=== PATIENT | female | born 1940 | race Caucasian/White ===

== ENCOUNTER 2016-08-31 09:13 | Observation (INO) ==
--- NOTE | 2016-08-31 09:33 | Emergency Department Note ---
Disposition Clinical Impression: Fracture of greater trochanter of left femur, Fall, Narcotic induced mental alteration Disposition: Admitted As Inpatient Condition: Fair Referrals: NO,PCP [Non-Partnered Physician] - Forms: ED Satisfaction Letter Time of Disposition: 12:25 Lower Extremity Injury HPI - General Chief Complaint: ED Extremity Injury, Lower Stated Complaint: fall/ left hip pain Time Seen by Provider: 08/31/16 09:20 Source: patient, EMS Mode of arrival: EMS Limitations: altered mental status (appears lethargic ) Nursing Notes Reviewed: Yes Vital Signs Reviewed: Yes - History of Present Illness HPI Narrative: Patient reportedly was pushing a chair when the chair went away from her she slipped fell and hit her hip family unable to get her up she has had a history of hip injury in the past family that it took EMS decide upon their arrival noted that they she appears to be overmedicated they are concerned that she may too much pain medication with Xanax they state there is a number of pills missing Brenda's how hard time awakening or they are concerned as this may be the falls result of being overmedicated as a result she is here for evaluation of the hip injury as well as possible overmedication Pt Subjective Complaint: hip injury Injury location: Left hip, Left pelvis Onset (ago): [employer] Mechanism of Injury: fall Context: fall, direct blow Place: home Pain Severity: moderate Pain Scale: 5 Improves with: nothing Worsens with: nothing Associated symptoms: Reports: unable to bear weight, snap/pop sensation - Related Data Home Medications Medication Instructions Recorded Confirmed Alprazolam [Xanax 0.5 MG Tablet] 0.5 mg PO BID 08/31/16 08/31/16 Amlodipine [Norvasc] 10 mg PO DAILY 08/31/16 08/31/16 Cetirizine HCl [Zyrtec] 10 mg PO DAILY 08/31/16 08/31/16 HYDROcodone/Acet 7.5/325 mg [[place] 1 tab PO QID 08/31/16 08/31/16 7.5-325 mg] Lisinopril-HCTZ 10-12.5 [Prinzide 1 each PO DAILY 08/31/16 08/31/16 10-12.5] Omeprazole [PriLOSEC] 20 mg PO DAILY 08/31/16 08/31/16 Allergies Allergy/AdvReac Type Severity Reaction Status Date / Time Sulfa (Sulfonamide Allergy Rash Verified 08/31/16 09:16 Antibiotics) All systems ED: reviewed and negative except as stated. Constitutional: Reports: weakness. Denies: fever, chills Eyes: Denies: eye pain ENT ED: Denies: ear pain, throat pain, dental pain Cardiovascular: Denies: chest pain, palpitations, dyspnea on exertion Respiratory: Denies: cough, dyspnea, wheezes Gastrointestinal: Denies: abdominal pain, nausea, vomiting Genitourinary: Denies: urgency, dyspareunia, genital lesions Musculoskeletal: Reports: joint swelling (and pain Left hip area) Integumentary: Denies: rash, abrasion Neurological: Reports: weakness. Denies: headache Psychiatric: Denies: anxiety Endocrine: Reports: fatigue Hematological/Lymphatic: Denies: easy bleeding Allergic/Immunologic: Denies: facial swelling Past Medical History - Past Medical History Attestation: Yes The following information was validated with the patient. Source: patient, old records reviewed, nursing notes reviewed Physical Exam - General Limitations: altered mental status General appearance: appears intoxicated, lethargic, cachectic - Head Head exam: atraumatic, normocephalic, normal inspection - Eye Eye exam: Present: normal appearance, PERRL, EOMI, other (pupils pinpoint) - ENT ENT exam: normal exam, normal oropharynx, mucous membranes moist, normal external ear exam - Neck Neck exam: Present: normal inspection, full ROM, trachea midline - Chest Chest inspection: Present: normal inspection, symmetric chest wall rise - Respiratory Respiratory exam: Present: normal lung sounds bilaterally - Cardiovascular Cardiovascular exam: Present: regular rate, normal rhythm, normal heart sounds - Abdominal Exam Abdominal exam: Present: soft, Non-Tender, normal bowel sounds. Absent: mass, pulsatile mass, hernia - Expanded Upper Extremity Exam Shoulder exam: Present: normal inspection, full ROM Arm exam: Present: normal inspection, full ROM Elbow exam: Present: normal inspection, full ROM Forearm/Wrist exam: Present: normal inspection, full ROM Hand exam: Present: normal inspection, full ROM Vascular exam: Normal: capillary refill, radial pulse - Expanded Lower Extremity Exam Hip/Pelvis exam: Present: normal inspection, full ROM, pelvis stable, other ( Patient has full range of motion in the left hip but has pain with flexion and extension ABD and ADD duction patient though has full range of motion in the right hip pelvic girdle was stable but it is tender to palpate on the left) Upper leg exam: Present: normal inspection, full ROM Knee exam: Present: normal inspection, full ROM Lower leg exam: Present: normal inspection, full ROM Ankle exam: Present: normal inspection, full ROM Foot/toe exam: Present: normal inspection, full ROM Neurovascular/Tendon exam: Present: normal capillary refill, normal fine/light touch. Absent: motor deficit, sensory deficit, tendon deficit Gait: not tested/not observed - Back Exam Back exam: Present: normal inspection, full ROM. Absent: tenderness, muscle spasm - Neurological Exam Neurological exam: Present: alert, oriented X3, CN II-XII intact - Psychiatric Psychiatric exam: Present: normal affect, normal mood - Skin Skin exam: Present: warm, dry, intact, normal color Course Course Narrative: Patient seen and examined patient appeared to be lethargic and difficult to arouse but was maintaining her airway saturation and blood pressure as a result patient was not given Narcan due to the fact that it may even G Xanax and to prevent seizure activity as result patient is resting comfortably awaiting laboratory results - Reevaluation(s) Reevaluation #1: Family advises us after discussion with Dr. Velazquez that she has been taking too many of her [place] she is taking 2 tabs every 4-6 hours instead of 1 tab every 6 hours as prescribed she has already gone through almost 30+ tabs in 24-48 hours according to the son Heri in addition he is unsure of how many Xanax she has taken during this period time which is most likely contributing factor to her fall which broke her hip today Dr. Livingston felt the patient did not need have surgical intervention as a result we will keep her here at our facility and then give her orthopedic referral at discharge to Dr. Danielle Vital Signs Temperature 97.7 F 08/31/16 09:17 Pulse Rate 91 08/31/16 09:17 Respiratory Rate 18 08/31/16 09:17 Blood Pressure 127/46 08/31/16 09:17 O2 Sat by Pulse Oximetry 100 08/31/16 09:17 Temperature 97.7 F 08/31/16 09:17 Pulse Rate 81 08/31/16 11:30 Respiratory Rate 18 08/31/16 11:30 Blood Pressure 110/60 08/31/16 11:30 O2 Sat by Pulse Oximetry 98 08/31/16 11:30 Oxygen Delivery Oxygen Delivery Room Air Extremity Injury, Lower - Differential Diagnosis Likely: fracture, dislocation - Medical Records Medical records reviewed: Yes I reviewed the patient's medical records. - Lab Data Lab results reviewed: Yes I reviewed the patient's lab results. Lab Results 08/31/16 08/31/16 Range/Units 09:40 09:40 Urine Color Yellow (Yellow) Urine Clarity Clear (Clear) Urine pH 5.5 (5.0-8.0) pH Units Ur Specific [place] 1.010 (1.010-1.025) Urine Protein Negative (Neg-Trace) mg/dL Urine Glucose (UA) Normal (Normal) mg/dL Urine Ketones Negative (Negative) mg/dL Urine Blood Negative (Negative) Urine Nitrite Negative (Negative) Urine Bilirubin Negative (Negative) Urine Urobilinogen Normal (Normal) mg/dL Ur Leukocyte Esterase Negative (Negative) Ur Culture Indicated? NO (NO) Urine Opiates Screen Positive H (Nnklea=139) ng/mL Ur Oxycodone Screen Negative (Cutoff= 100) ng/mL Ur Barbiturates Screen Negative (Balyrw=416) ng/mL Ur Phencyclidine Scrn Negative (Cutoff=25) ng/mL Ur Amphetamines Screen Negative (Nsiitd=2899) ng/mL U Benzodiazepines Scrn Positive H (Kazjqv=772) ng/mL Urine Cocaine Screen Negative (Cutoff= 300) ng/mL U Marijuana (THC) Screen Negative (Cutoff = 50) ng/mL - Radiology Data Radiology results reviewed: Yes I reviewed the patient's radiology results. Critical Care Time Critical Care Time: No
[2016-08-31 09:53] LABS: Bilirubin,Urine Negative (Negative); Blood,Urine Negative (Negative); Clarity,Urine Clear (Clear); Color,Urine Yellow (Yellow); Glucose,Urine (UA) Normal (Normal); Ketones,Urine Negative (Negative); Leukocyte Esterase,Urine Negative (Negative); Nitrite,Urine Negative (Negative); PH,Urine 5.5 pH Units (5.0-8.0); Protein,Urine Negative (Neg-Trace); Urobilinogen,Urine Normal (Normal)
[2016-08-31 09:59] LABS: Amphetamine Screen,Urine Negative ng/mL (Cutoff=1000); Barbiturate Screen,Urine Negative ng/mL (Cutoff=200); Benzodiazepines Screen,Urine Positive ng/mL (Cutoff=200); Cannabinoid Screen,Urine Negative ng/mL (Cutoff = 50); Cocaine Screen,Urine Negative ng/mL (Cutoff= 300); Opiate Screen,Urine Positive ng/mL (Cutoff=300); Phencyclidine Screen,Urine Negative ng/mL (Cutoff=25)
[2016-08-31] MEDS ORDERED: *HR* Morphine 2 MG/ML SYRINGE IVP PRN (12:41)
[2016-08-31] MEDS ORDERED: Naloxone 0.4 MG/ML INJ IVP PRN (12:41)
[2016-08-31] MEDS ORDERED: Ondansetron 4 MG/2 ML VIAL IVP PRN (12:41)
[2016-08-31 12:52] LABS: Basophils % 0.2 %; Eosinophils # 0.3 K/mcL (0.0-0.6); Eosinophils % 2.4 %; Hematocrit 30.1 % (35.3-44.9); Immature Granulocytes % 0.3 % (0-4); Lymphocytes # 1.7 K/mcL (0.6-4.6); Lymphocytes % 15.7 %; Mean Corpuscular HGB Conc 33.2 g/dL (31.6-35.5); Mean Corpuscular Hemoglobin 26.7 pg (28.0-33.3); Mean Corpuscular Volume 80.5 fL (83.0-100.0); Mean Platelet Volume 9.7 fL (9.4-12.4); Monocytes # 0.6 K/mcL (0.0-1.3); Monocytes % 5.7 %; Neutrophils # 8.2 K/mcL (1.6-8.9); Platelet Count 298 K/mcL (140-400); Red Blood Count 3.74 M/mcL (3.82-4.97); Red Cell Distribution Width 15.9 % (11.5-14.5); Segmented Neutrophils % 75.7 %
[2016-08-31 12:58] LABS: INR 1.1; Prothrombin Time 11.4 Seconds (9.4-12.1)
[2016-08-31 13:01] LABS: Activated Partial Thrombo Time 38.5 Seconds (26.0-36.0)
[2016-08-31 13:07] LABS: BUN/Creatinine Ratio 20 (6-26); Blood Urea Nitrogen 21 mg/dL (7-20); Carbon Dioxide 23 mEq/L (19-29); Chloride 97 mEq/L (98-109); Glucose 80 mg/dL (70-99); Osmolality,Calculated 272 (280-300); Potassium 4.8 mEq/L (3.5-4.5); Sodium 130 mEq/L (136-145); eGFR For African Americans > 60 (> 60); eGFR For Non-African Americans 52 (> 60)
--- NOTE | 2016-08-31 15:49 | Internal Med History&Physical ---
Date of Encounter: 08/31/16 Time of Encounter: 15:20 Assessment and Plan (1) Fracture of greater trochanter of left femur Current visit: Yes Status: Acute An MRI will be done to assess for additional fracture. If no additional fractures are seen she will be given analgesics and PT and OT evaluation will be done. Qualifiers: Encounter type: initial encounter Fracture type: closed Qualified Code(s) : S72.112A - Displaced fracture of greater trochanter of left femur, initial encounter for closed fracture (2) Altered mental status Current visit: Yes Status: Acute Suspect due to use of benzodiazepines and narcotics. These will be titrated downward as tolerated. Qualifiers: Altered mental status type: unspecified Qualified Code(s): R41.82 - Altered mental status, unspecified (3) Microcytic anemia Current visit: Yes Status: Acute Anemia testing will be done in a.m. Suspect due to blood loss from chronic ibuprofen use. (4) Azotemia Current visit: Yes Status: Acute Will discontinue ibuprofen and give IV fluids. Monitor renal indices. Internal Medicine - H&P: HPI Chief complaint: Fall and left femur fracture Admitted From: Home Plans for Post Hospital Care: Home History of present illness: Ms. Garcia is a 76 year old female who was brought to the emergency room after she had a fall at home while pushing a chair in her kitchen. She states she simply lost her footing and fell to the floor. She had severe pain and states she could not stand. She remained on the floor for approximately 30 minutes until her son and grandson happened to come to her house. When they found her on the floor the squad was called and she was brought to the emergency room. CT scan of the pelvis showed nondisplaced fracture the superior aspect of the left femoral greater trochanter without definite involvement of the femoral neck or intertrochanteric extension. There was severe spondylosis at L5-S1 and at least moderate bilateral L5 neural foraminal narrowing. A MRI was mentioned to assess for occult involvement of the femoral neck or intertrochanteric region. She states her last fall was approximately 6 months ago when she slipped in the shower. She typically uses a cane or walker for ambulation and feels stable. Her musk skeletal history is significant for previous low back surgeries as well as 3 left shoulder surgeries. She does not have known gout. Past Med Surg Social Fam HX - Past Medical History Medical history: GERD, hypertension Psychiatric history: anxiety, depression - Social History Smoking Status: Current every day smoker Smokeless Tobacco Status: No Alcohol use: none Drug use: none Internal Medicine - H&P: Meds Alprazolam [Xanax 0.5 MG Tablet] 0.5 mg PO BID 08/31/16 [History] Amlodipine [Norvasc] 10 mg PO DAILY 08/31/16 [History] Cetirizine HCl [Zyrtec] 10 mg PO DAILY 08/31/16 [History] HYDROcodone/Acet 7.5/325 mg [[place] 7.5-325 mg] 1 tab PO QID 08/31/16 [History] Lisinopril-HCTZ 10-12.5 [Prinzide 10-12.5] 1 each PO DAILY 08/31/16 [History] Omeprazole [PriLOSEC] 20 mg PO DAILY 08/31/16 [History] Allergies Sulfa (Sulfonamide Antibiotics) Allergy (Verified 08/31/16 09:16) Rash All Systems PM: A 10-system review of systems was performed and is negative for pertinent findings except as documented above in the HPI. Review of systems: Gen.: She states her weight has been stable past few months Cardiovascular: She has history of hypertension but denies NV heart failure angina DVT or pulmonary embolus Respiratory: She smokes since age 57 never exceeding one fourth pack per day. She denies chronic lung disease and does not wear home oxygen. GI: She denies disorders of her liver gallbladder or exocrine pancreas : She denies hematuria dysuria or kidney stones Neurologic: She denies large distribution strokes or seizures. Endocrine: She denies diabetes thyroid disease or hyperlipidemia Hematology/oncology: She has history of anemia but has not had workup done. She denies internal malignancies or other blood disorders Psychiatric: She has anxiety and depression [place] skeletal: As per history of present illness - Constitutional Vitals: Temp Pulse Resp BP Pulse Ox 98.5 F 90 12 105/76 98 08/31/16 13:18 08/31/16 13:18 08/31/16 13:18 08/31/16 13:18 08/31/16 13:20 Exam: Gen.: She is a well-developed well-nourished female who appears in mild pain at the present time. She is lethargic but does awaken and answer questions appropriately. HEENT: Head is atraumatic and normocephalic. Eyes: EOMI. There is no scleral icterus. Mouth: Mucosa is moist. Neck: Supple and nontender. There is no thyromegaly or adenopathy noted. Heart: Regular without murmurs gallops or ectopics. Lungs: She has diminished breath sounds diffusely. No wheezes or crackles are heard. Abdomen: Soft and nontender. No masses or guarding are noted. Extremities: She has DJD changes of her hands. There is no cyanosis edema or clubbing noted. Dorsalis pedis and posttibial pulses are 1-2 over 2 bilaterally. She has pain on movement of her left leg or raising up from lying position. Neurologic: Mental status: She is talkative and a good historian. Cranial nerves: Smile is symmetric. Forehead wrinkles bilaterally. Tongue protrudes midline. EOMI. Motor: There is no pronator drift. Cerebellar: Finger to nose is intact bilaterally. Skin: Warm and dry Internal Med - H&P Results - Labs CBC & Chem 7: 08/31/16 12:33 08/31/16 12:33
[2016-08-31] MEDS: *HR* HYDROcodone/Acet 5/325 mg TABLET PO PRN (18:22)
[2016-09-01] MEDS: *HR* HYDROcodone/Acet 5/325 mg TABLET PO PRN ×3 (03:31→20:31)
[2016-09-01 05:26] LABS: Basophils % 0.2 %; Eosinophils # 0.4 K/mcL (0.0-0.6); Eosinophils % 4.4 %; Hemoglobin 8.8 g/dL (11.5-15.4); Immature Granulocytes % 0.3 % (0-4); Lymphocytes # 1.5 K/mcL (0.6-4.6); Lymphocytes % 16.5 %; Mean Corpuscular HGB Conc 33.8 g/dL (31.6-35.5); Mean Corpuscular Hemoglobin 27.3 pg (28.0-33.3); Mean Corpuscular Volume 80.7 fL (83.0-100.0); Mean Platelet Volume 9.9 fL (9.4-12.4); Monocytes # 0.5 K/mcL (0.0-1.3); Monocytes % 5.8 %; Neutrophils # 6.7 K/mcL (1.6-8.9); Platelet Count 262 K/mcL (140-400); Red Blood Count 3.22 M/mcL (3.82-4.97); Red Cell Distribution Width 16.1 % (11.5-14.5); Segmented Neutrophils % 72.8 %
[2016-09-01 05:58] LABS: Alanine Aminotransferase 128 Units/L (0-55); Albumin 3.2 g/dL (3.5-5.0); Albumin/Globulin Ratio 1.1 (1.1-2.2); Alkaline Phosphatase 189 Units/L (38-126); Aspartate Amino Transferase 53 Units/L (5-34); BUN/Creatinine Ratio 17 (6-26); Bilirubin,Total 0.3 mg/dL (0.2-1.2); Blood Urea Nitrogen 12 mg/dL (7-20); Calcium 8.5 mg/dL (8.6-10.8); Carbon Dioxide 21 mEq/L (19-29); Chloride 99 mEq/L (98-109); Globulin 2.9 g/dL (2.4-3.5); Glucose 87 mg/dL (70-99); Osmolality,Calculated 271 (280-300); Potassium 4.2 mEq/L (3.5-4.5); Sodium 131 mEq/L (136-145); Total Protein 6.1 g/dL (6.0-8.3); eGFR For African Americans > 60 (> 60); eGFR For Non-African Americans > 60 (> 60)
[2016-09-01 06:18] LABS: Thyroid Stimulating Hormone 0.462 mcIU/mL (0.350-4.840)
--- NOTE | 2016-09-01 08:59 | Internal Med Progress Note ---
Date of Encounter: 09/01/16 Time of Encounter: 08:50 - Assessment and plan (1) Fracture of greater trochanter of left femur Current Visit: Yes Status: Acute Assessment and plan: September 01. Continue therapy intervention and pain control. Qualifiers: Encounter type: initial encounter Fracture type: closed Qualified Code(s) : S72.112A - Displaced fracture of greater trochanter of left femur, initial encounter for closed fracture (2) Altered mental status Current Visit: Yes Status: Acute Assessment and plan: September 01. Improved on lower dose benzodiazepines and narcotic. Qualifiers: Altered mental status type: unspecified Qualified Code(s): R41.82 - Altered mental status, unspecified (3) Microcytic anemia Current Visit: Yes Status: Acute Assessment and plan: September 01. Anemia testing is pending (4) Azotemia Current Visit: Yes Status: Acute Assessment and plan: September 01. Resolved. Remain off ibuprofen and continue IV fluids for now. - Subjective Interval history: September 01. She has no new complaints. She states she has pain in her left hip and shoulder area. - Constitutional Vitals: Temp Pulse Resp BP Pulse Ox 98.6 F 81 16 115/54 96 09/01/16 07:16 09/01/16 07:16 09/01/16 07:16 09/01/16 07:16 09/01/16 07:16 Exam: She is lying in bed and appears in no significant distress. Her affect is overall cheerful. I reviewed her medications and lab results. I received a verbal report from nursing last night that her MRI scan was reviewed by an orthopedist at [facility] who did not feel surgical intervention was necessary. Internal Medicine: Result - Labs CBC & Chem 7: 09/01/16 05:17 09/01/16 05:17 Labs: Short CBC 09/01/16 Range/Units 05:17 WBC 9.2 (4.3-11.1) K/mcL Hgb 8.8 L (11.5-15.4) g/dL Hct 26.0 L (35.3-44.9) % Plt Count 262 (140-400) K/mcL Neutrophils # 6.7 (1.6-8.9) K/mcL BMP 09/01/16 05:17 Sodium 131 L Potassium 4.2 Chloride 99 Carbon Dioxide 21 BUN 12 Creatinine 0.71 Glucose 87 Calcium 8.5 L Liver Function 09/01/16 Range/Units 05:17 Total Bilirubin 0.3 (0.2-1.2) mg/dL AST 53 H (5-34) Units/L ALT 128 H (0-55) Units/L Alkaline Phosphatase 189 H (38-126) Units/L Albumin 3.2 L (3.5-5.0) g/dL - ABG Interpretation ABG results: PT/INR, D-dimer PT 11.4 Seconds (9.4-12.1) 08/31/16 12:33 Consult Discharge Plan - Plan Referrals: Ashok Simmons DO [Primary Care Provider] - 1 week
[2016-09-01] MEDS ORDERED: Pantoprazole 40 MG VIAL IVP SCH (09:00)
[2016-09-01] MEDS ORDERED: Loratadine 10 MG TABLET PO SCH (09:00)
[2016-09-01 14:23] LABS: Folate 11.4 ng/mL (7.0-31.4)
[2016-09-01 14:39] LABS: % Iron Saturation 14 % (15-50); Iron 40 mcg/dL (50-170); Transferrin 208 mg/dL (180-382)
[2016-09-01 15:00] LABS: Ferritin 43 ng/ml (5-204)
[2016-09-02] MEDS: *HR* HYDROcodone/Acet 5/325 mg TABLET PO PRN ×4 (05:32→20:45)
[2016-09-02 05:49] LABS: Basophils % 0.3 %; Eosinophils # 0.3 K/mcL (0.0-0.6); Eosinophils % 4.2 %; Hemoglobin 9.2 g/dL (11.5-15.4); Immature Granulocytes % 0.3 % (0-4); Lymphocytes % 29.1 %; Mean Corpuscular HGB Conc 34.1 g/dL (31.6-35.5); Mean Corpuscular Volume 79.2 fL (83.0-100.0); Mean Platelet Volume 9.9 fL (9.4-12.4); Monocytes # 0.5 K/mcL (0.0-1.3); Monocytes % 7.8 %; Platelet Count 316 K/mcL (140-400); Red Blood Count 3.41 M/mcL (3.82-4.97); Red Cell Distribution Width 16.2 % (11.5-14.5); Segmented Neutrophils % 58.3 %
[2016-09-02 06:03] LABS: BUN/Creatinine Ratio 11 (6-26); Blood Urea Nitrogen 7 mg/dL (7-20); Calcium 8.9 mg/dL (8.6-10.8); Carbon Dioxide 24 mEq/L (19-29); Chloride 99 mEq/L (98-109); Glucose 100 mg/dL (70-99); Osmolality,Calculated 274 (280-300); Potassium 4.1 mEq/L (3.5-4.5); Sodium 133 mEq/L (136-145); eGFR For African Americans > 60 (> 60); eGFR For Non-African Americans > 60 (> 60)
--- NOTE | 2016-09-02 09:29 | Internal Med Progress Note ---
Date of Encounter: 09/02/16 Time of Encounter: 09:20 - Assessment and plan (1) Fracture of greater trochanter of left femur Current Visit: Yes Status: Acute Assessment and plan: September 01. Continue therapy intervention and pain control. September 02. We will add Duragesic patch, Lidoderm patch, and BenGay ointment. Continue prn [place] Qualifiers: Encounter type: initial encounter Fracture type: closed Qualified Code(s) : S72.112A - Displaced fracture of greater trochanter of left femur, initial encounter for closed fracture (2) Altered mental status Current Visit: Yes Status: Acute Assessment and plan: September 01. Improved on lower dose benzodiazepines and narcotic. September 02. Resolved Qualifiers: Altered mental status type: unspecified Qualified Code(s): R41.82 - Altered mental status, unspecified (3) Microcytic anemia Current Visit: Yes Status: Acute Assessment and plan: September 01. Anemia testing is pending September 02. Anemia testing reviewed. We will start ferrous sulfate with vitamin C. (4) Azotemia Current Visit: Yes Status: Acute Assessment and plan: September 01. Resolved. Remain off ibuprofen and continue IV fluids for now. - Subjective Interval history: September 01. She has no new complaints. She states she has pain in her left hip and shoulder area. September 02. She has no new complaints. She states she still has significant pain in her left hip and shoulder - Constitutional Vitals: Temp Pulse Resp BP Pulse Ox 99.1 F 82 16 129/70 93 L 09/02/16 06:33 09/02/16 06:33 09/02/16 06:33 09/02/16 06:33 09/02/16 06:33 Exam: She is lying in bed and appears in no significant pain. Her affect is bright and cheerful. I reviewed her medications and lab results. Internal Medicine: Result - Labs CBC & Chem 7: 09/02/16 05:20 09/02/16 05:20 Labs: Short CBC 09/02/16 Range/Units 05:20 WBC 6.9 (4.3-11.1) K/mcL Hgb 9.2 L (11.5-15.4) g/dL Hct 27.0 L (35.3-44.9) % Plt Count 316 (140-400) K/mcL Neutrophils # 4.0 (1.6-8.9) K/mcL BMP 09/01/16 09/02/16 05:17 05:20 Sodium 131 L 133 L Potassium 4.2 4.1 Chloride 99 99 Carbon Dioxide 21 24 BUN 12 7 Creatinine 0.71 0.62 Glucose 87 100 H Calcium 8.5 L 8.9 Liver Function 09/01/16 Range/Units 05:17 Total Bilirubin 0.3 (0.2-1.2) mg/dL AST 53 H (5-34) Units/L ALT 128 H (0-55) Units/L Alkaline Phosphatase 189 H (38-126) Units/L Albumin 3.2 L (3.5-5.0) g/dL - ABG Interpretation ABG results: PT/INR, D-dimer PT 11.4 Seconds (9.4-12.1) 08/31/16 12:33 Consult Discharge Plan - Plan Referrals: Ashok Simmons DO [Primary Care Provider] - 1 week
[2016-09-02] MEDS ORDERED: *HR* FentaNYL PATCH 12 MCG PATCH TD SCH (09:30)
[2016-09-02] MEDS: Methyl Salicylate/Menthol 28 GM TUBE TP SCH ×2 (18:15→20:45)
[2016-09-03] MEDS: *HR* HYDROcodone/Acet 5/325 mg TABLET PO PRN ×3 (02:34→14:34)
[2016-09-03] MEDS: Ascorbic Acid 500 MG TABLET PO SCH ×2 (06:32→08:37)
[2016-09-03] MEDS: Methyl Salicylate/Menthol 28 GM TUBE TP SCH (08:38)
[2016-09-03 14:18] VITALS: BP 128/76
--- NOTE | 2016-09-03 15:36 | Discharge Summary ---
Date of Encounter: 09/03/16 Time of Encounter: 15:30 - Discharge Diagnosis (1) Fracture of greater trochanter of left femur Priority: Primary Status: Acute Qualifiers: Encounter type: initial encounter Fracture type: closed Qualified Code(s) : S72.112A - Displaced fracture of greater trochanter of left femur, initial encounter for closed fracture (2) Altered mental status Priority: Secondary Status: Resolved Qualifiers: Altered mental status type: unspecified Qualified Code(s): R41.82 - Altered mental status, unspecified (3) Microcytic anemia Priority: Secondary Status: Acute (4) Azotemia Priority: Secondary Status: Resolved - Discharge Medications Prescriptions: Ascorbic Acid [Vitamin C] 500 mg PO DAILY #30 tablet FentaNYL PATCH [Duragesic] 12 mcg TD Q72H #2 patch.td72 Ferrous Sulfate 325 mg PO DAILY #30 tablet Lidocaine Patch [Lidoderm 5% patch] 1 each TP DAILY #7 adh..patch Home Medications: HYDROcodone/Acet 7.5/325 mg [[place] 7.5-325 mg] 1 tab PO QID 08/31/16 [History] Omeprazole [PriLOSEC] 20 mg PO DAILY 08/31/16 [History] Alprazolam [Xanax 0.5 MG Tablet] 0.25 mg PO BID PRN 30 Days 09/03/16 [Rx] Ascorbic Acid [Vitamin C] 500 mg PO DAILY #30 tablet 09/03/16 [Rx] Cetirizine HCl [Zyrtec] 10 mg PO DAILY PRN 365 Days 09/03/16 [Rx] FentaNYL PATCH [Duragesic] 12 mcg TD Q72H #2 patch.td72 09/03/16 [Rx] Ferrous Sulfate 325 mg PO DAILY #30 tablet 09/03/16 [Rx] Lidocaine Patch [Lidoderm 5% patch] 1 each TP DAILY #7 adh..patch 09/03/16 [Rx] Methyl Salicylate/Menthol [Bengay] 1 appl TP BID tube 09/03/16 [Rx] Allergies/Adverse Reactions: Allergies Sulfa (Sulfonamide Antibiotics) Allergy (Verified 08/31/16 09:16) Rash Procedures/tests Complete & Pending: Procedures Performed prior 72 hours Category Date Time Status MR hip LT wo con [MR] Stat MRI 08/31/16 20:20 Completed Date of admission: 08/31/16 12:36 Primary care physician: Ashok Simmons - Patient Status Disposition: Home Health Service Condition: Fair Functional capacity at discharge: uses cane/walker Overall status at discharge: patient is progressing back to baseline - Discharge Instructions Follow Up With: Ashok Simmons, [Primary Care Provider] - 1 week - Diet and Activity Activity: as per physical therapy Diet: advance to your usual diet Hospital course: Ms. Garcia is a 76 year old female who was brought to the emergency room after she had a fall at home while pushing a chair in her kitchen. She states she simply lost her footing and fell to the floor. She had severe pain and states she could not stand. She remained on the floor for approximately 30 minutes until her son and grandson happened to come to her house. When they found her on the floor the squad was called and she was brought to the emergency room. CT scan of the pelvis showed nondisplaced fracture the superior aspect of the left femoral greater trochanter without definite involvement of the femoral neck or intertrochanteric extension. There was severe spondylosis at L5-S1 and at least moderate bilateral L5 neural foraminal narrowing. A MRI was mentioned to assess for occult involvement of the femoral neck or intertrochanteric region. Initial orders were written by the emergency physician. I saw her August 31 and performed a history and physical. MRI was ordered and showed no additional findings. She was given physical therapy and occupational therapy and was able to in the hallway with a wheeled walker by day of discharge. She also received Duragesic patch, Lidoderm patch and BenGay as treatment for left hip pain. Her benzodiazepine dose was reduced and her mental status returned to a normal baseline. Anemia testing showed findings consistent with iron deficiency. She was started on ferrous sulfate with vitamin C. She will discontinue ibuprofen use. Her azotemia resolved with stopping ibuprofen and giving IV fluids. Her BUN and creatinine were 7 and 0.62 respectively on September 02. On September 03 she was stable for discharge home. She will follow with her PCP within one week. She will receive DME of a wheeled walker and bedside commode. Home health services will be provided including physical therapy and occupational therapy.]. - Time Spent with Patient Total time spent providing and/or coordinating discharge services: - Constitutional Vitals: Temp Pulse Resp BP Pulse Ox 98.2 F 64 16 128/76 98 09/03/16 14:17 09/03/16 14:17 09/03/16 14:17 09/03/16 14:17 09/03/16 14:17
[2016-09-03] MEDS ORDERED: FLU VACC QS2016-17 36MOS UP/PF 0.5 ML SYRINGE IM ONE (16:05)
--- NOTE | 2016-09-03 16:40 | Physician Discharge Referral ---
Home Health/Hosp Referral Info Transfer to: Home Health Attending Provider: Julio Provider in Charge Post Discharge: PCP - Diagnosis (1) Fracture of greater trochanter of left femur Priority: Primary Status: Acute (2) Altered mental status Priority: Secondary Status: Resolved (3) Microcytic anemia Priority: Secondary Status: Acute (4) Azotemia Priority: Secondary Status: Resolved - Respiratory Orders Smoking Cessation: Smoking cessation has been advised. For more information, call the [place] Tobacco Quit Line at 7-397-TUFZ-NOW. - Diet/Nutrition Diet/Nutrition Orders: Regular - Activity Activity Orders: Walker - Services Needed Following services are medically necessary services: Nursing, Home Health Aide, Physical Therapy, Occupational Therapy - Transfer Medications Prescriptions: Ascorbic Acid [Vitamin C] 500 mg PO DAILY #30 tablet FentaNYL PATCH [Duragesic] 12 mcg TD Q72H #2 patch.[id number] Ferrous Sulfate 325 mg PO DAILY #30 tablet Lidocaine Patch [Lidoderm 5% patch] 1 each TP DAILY #7 adh..patch Home Medications: HYDROcodone/Acet 7.5/325 mg [[place] 7.5-325 mg] 1 tab PO QID 08/31/16 [History] Omeprazole [PriLOSEC] 20 mg PO DAILY 08/31/16 [History] Alprazolam [Xanax 0.5 MG Tablet] 0.25 mg PO BID PRN 30 Days 09/03/16 [Rx] Ascorbic Acid [Vitamin C] 500 mg PO DAILY #30 tablet 09/03/16 [Rx] Cetirizine HCl [Zyrtec] 10 mg PO DAILY PRN 365 Days 09/03/16 [Rx] FentaNYL PATCH [Duragesic] 12 mcg TD Q72H #2 patch.[id number] 09/03/16 [Rx] Ferrous Sulfate 325 mg PO DAILY #30 tablet 09/03/16 [Rx] Lidocaine Patch [Lidoderm 5% patch] 1 each TP DAILY #7 adh..patch 09/03/16 [Rx] Methyl Salicylate/Menthol [Bengay] 1 appl TP BID tube 09/03/16 [Rx] Allergies/Adverse Reactions: Allergies Sulfa (Sulfonamide Antibiotics) Allergy (Verified 08/31/16 09:16) Rash Certification: Further, I certify that my clinical findings support that this patient is homebound (i.e. absences from home require considerable and taxing effort and are for medical reasons or [employer] services or infrequently or short duration when for other reasons) because: Homebound Reason: Leaving home requires considerable and taxing effort due to condition (Significant pain from trochanteric fracture) Attestation: My signature below is to certify that this patient is under my care and that I, or nurse practitioner, or a physician's pharmacy affairs assistant working with me, has a face-to -face encounter with this patient.
== END 2016-09-03 16:55 | disposition home health service (06) ==
LOC: EMEROOPIK 09:13 → INPPIK 09:13
PROVIDERS: ADMIT Internal Medicine; ATTEND Internal Medicine